=== PATIENT | male | born 1965 | race Caucasian/White ===

== ENCOUNTER 2024-12-27 18:41 | Emergency (ER) | payer SELFPAY ==
[~2024-12-27] VITALS: Ht 167.6 cm; Wt 78.5 kg
[2024-12-27 19:09] LABS: HEMATOCRIT 50.5 % (35.0-50.0); HEMOGLOBIN 17.5 g/dL (12.0-18.0); MCH 30.5 (27-36); MCHC 34.7 g/dl (30-36); MCV 87.8 fl (81-99); PLATELET COUNT 354 K/uL (140-440); RBC 5.75 M/ul (4.3-5.7); RDW 13.2 (10.5-15.0)
[2024-12-27 19:22] LABS: EOSINOPHILS, MANUAL DIFF 1; LYMPHOCYTES, MANUAL DIFF 4; MONOCYTES, MANUAL DIFF 10; NEUTROPHILS, MANUAL DIFF 85
[2024-12-27 19:26] LABS: ALBUMIN 3.8 g/dL (3.4-5.0); ALBUMIN/GLOBULIN RATIO 0.83 (1.1-2.4); BILIRUBIN, TOTAL 1.4 mg/dL (0.2-1.0); BUN/CREATININE RATIO 7.96 (6.0-28.6); CALCIUM 8.6 mg/dL (8.5-10.1); CREATININE, SERUM 11.43 mg/dL (0.70-1.30); MAGNESIUM 1.8 mg/dL (1.8-2.4); PROTEIN, TOTAL 8.4 g/dL (6.4-8.2)
[2024-12-27] MEDS ORDERED: SODIUM CHLORIDE 0.9% 1,000 ML IV SCH ×2 (19:45→21:00)
[2024-12-27] MEDS ORDERED: LIDOCAINE & ANTACID 35 ML BTL PO ONE (21:00)
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
[2024-12-27] MEDS ORDERED: diphenhydrAMINE HCL 25 MG CAP PO ONE (22:30)
[2024-12-27 22:50] LABS: ANION GAP 25.1 (7-21); BUN/CREATININE RATIO 8.37 (6.0-28.6); CALCIUM 7.5 mg/dL (8.5-10.1); CREATININE, SERUM 10.51 mg/dL (0.70-1.30); POTASSIUM 4.1 mmol/L (3.5-5.1)
[2024-12-28 00:45] LABS: PH, VENOUS 7.273 (7.31-7.41)
[2024-12-28] MEDS ORDERED: SODIUM CHLORIDE 0.9% 1,000 ML IV SCH (02:00)
[2024-12-28 02:36] VITALS: BP 171/95
--- NOTE | 2024-12-28 12:49 | EKG ---
[facility] [address] [facility] [place], [place] [address] Signed Normal sinus rhythm Normal ECG No previous ECGs available Confirmed by Isela Patel DO ([id number]) on 12/28/2024 12:49:06 PM Electronically Signed By: ISELA PATEL DO 12/28/24 1249 PATIENT NAME: BARBARA BENNETT Electrocardiogram DATE OF : 65 PHYSICIAN: ISELA PATEL DO REPORT #: [id number] REPORT IS CONFIDENTIAL AND NOT TO BE RELEASED WITHOUT AUTHORIZATION
== END 2024-12-28 02:36 | disposition short-term general hospital (02) ==
LOC: ED 18:41
PROVIDERS: Emergency Medicine
DX: N17.9 Acute kidney failure, unspecified (principal); R07.89 Other chest pain; Z91.030 Bee allergy status; Z88.8 Allergy status to other drugs, medicaments and biological substances
CPT/HCPCS: 36415; 71045; 80048; 80053; 82803; 83735; 84484; 85025; 96360; 96361; 99285-25; J7030